=== PATIENT | male | born 1975 | race African-American/Black ===

== ENCOUNTER 2018-03-14 02:55 | Emergency (ER) | payer OTHER ==
[~2018-03-14] VITALS: Ht 188 cm; Wt 152.0 kg
[2018-03-14 03:01] VITALS: BP 141/67
--- NOTE | 2018-03-14 03:29 | PHYS DOC ---
Past Medical History Past Medical History: High Cholesterol, Hypertension, Other Additional Past Medical Histor: Gout Past Surgical History: Other Additional Past Surgical Histo: Left knee injections Alcohol Use: Occasionally Drug Use: None Adult General Chief Complaint Chief Complaint: LACERATION/AVULSION HPI HPI Patient is a 42 year old m laceration to affected finger. [place] Review of Systems Review of Systems Current Medications Current Medications Current Medications Medications (Trade) Dose Ordered Sig/Meeta Start Time Stop Time Status Last Admin Dose Admin Ibuprofen (Motrin) 600 mg 1X ONCE 03/14/18 03:30 03/14/18 03:31 UNV Allergies Allergies Allergies Coded Allergies Type Severity Reaction Last Updated Verified No Known Drug Allergies 03/14/18 No Physical Exam Physical Exam Constitutional: Well developed, well nourished, no acute distress, non-toxic appearance. [] HENT: Normocephalic, atraumatic, bilateral external ears normal, oropharynx moist, no oral exudates, nose normal. [] Eyes: PERRLA, EOMI, conjunctiva normal, no discharge. [] Neck: Normal range of motion, no tenderness, supple, no stridor. [] skin: 0.5 cm noted tip of affected finger very superficial. Neurologic: Alert and oriented X 3, normal motor function, normal sensory function, no focal deficits noted. [] Current Patient Data Vital Signs Vital Signs Date Time Temp Pulse Resp B/P (MAP) Pulse Ox O2 Delivery O2 Flow Rate FiO2 03/14/18 03:01 98.6 106 22 141/67 (91) 96 Room Air 98.6 EKG EKG [] Radiology/Procedures Radiology/Procedures [] Course & Med Decision Making Course & Med Decision Making Pertinent Labs and Imaging studies reviewed. (See chart for details) 42 yo m laceration irrigated closed wtih dermabond honestly it probably only needed bandaid but patient asked for dermabond. reassurnace provided tetanus uptodate Marco Disclaimer Dragon Disclaimer This electronic medical record was generated, in whole or in part, using a voice recognition dictation system. Departure Departure Impression: Primary Impression: Laceration Disposition: HOME, SELF-CARE Condition: STABLE Patient Instructions: Laceration Care, Adult BILL PURDY MD Mar 14, 2018 03:29
[2018-03-14] MEDS ORDERED: IBUPROFEN 600 MG TABLET. PO ONE (03:45)
== END 2018-03-14 03:59 | disposition home or self-care (01) ==
LOC: ER 02:55
DX: S61.213A Laceration without foreign body of left middle finger without damage to nail, initial encounter (principal); I10 Essential (primary) hypertension; E78.00 Pure hypercholesterolemia, unspecified; Y28.8XXA Contact with other sharp object, undetermined intent, initial encounter; Y93.89 Activity, other specified; Y92.89 Other specified places as the place of occurrence of the external cause; Y99.8 Other external cause status
CPT/HCPCS: 12001; 99283